=== PATIENT | male | born 1985 | race Caucasian/White ===

== ENCOUNTER 2016-09-14 17:59 | Emergency (ER) | payer SELFPAY ==
[2016-09-14] MEDS: IBUPROFEN 600 MG STARTER PACK 4 TAB BTL PO STA (18:24)
--- NOTE | 2016-09-14 18:55 | XR ---
EXAMINATION TYPE: XR chest 2V DATE OF EXAM: 09/14/2016 6:46 PM COMPARISON: July 05, 2011 HISTORY: Cough and congestion with pain TECHNIQUE: Frontal and lateral views of the chest are obtained. FINDINGS: There is no focal air space opacity, pleural effusion, or pneumothorax seen. The cardiac silhouette size is within normal limits. The osseous structures are intact. IMPRESSION: No acute cardiopulmonary process.
--- NOTE | 2016-09-14 19:14 | ED ---
URI HPI - General Chief Complaint: Upper Respiratory Infection Stated Complaint: congestion Time Seen by Provider: 09/14/16 18:08 Source: patient, RN notes reviewed Mode of arrival: ambulatory Limitations: no limitations - History of Present Illness Initial Comments: Patient is a 31 year old male with congestion, cough for 2 days. Patient also has had a high fever. No motrin or tylenol yet today. States that girlfriend is currently diagnosed with flu and thinks he has it. PAtient denies nausea, vomiting, chest pain, shortness of breath. He has no significant past medical history. - Related Data Previous Rx's Medication Instructions Recorded Benzonatate [Tessalon Perles] 100 mg PO TID PRN #20 capsule 09/14/16 Allergies Allergy/AdvReac Type Severity Reaction Status Date / Time No Known Allergies Allergy Verified 09/14/16 18:07 Review of Systems ROS Statement: Those systems with pertinent positive or pertinent negative responses have been documented in the HPI. ROS Other: All systems not noted in ROS Statement are negative. Past Medical History Past Medical History: No Reported History History of Any Multi-Drug Resistant Organisms: None Reported Additional Past Surgical History / Comment(s): ear tubes Past Psychological History: No Psychological Hx Reported Smoking Status: Current every day smoker Past Alcohol Use History: Occasional Past Drug Use History: None Reported General Exam Limitations: no limitations General appearance: alert, in no apparent distress Head exam: Present: atraumatic, normocephalic, normal inspection Eye exam: Present: normal appearance, PERRL, EOMI. Absent: scleral icterus, conjunctival injection, periorbital swelling ENT exam: Present: normal exam, mucous membranes moist Neck exam: Present: normal inspection. Absent: tenderness, meningismus, lymphadenopathy Respiratory exam: Present: normal lung sounds bilaterally. Absent: respiratory distress, wheezes, rales, rhonchi, stridor Cardiovascular Exam: Present: regular rate, normal rhythm, normal heart sounds. Absent: systolic murmur, diastolic murmur, rubs, gallop, clicks GI/Abdominal exam: Present: soft, normal bowel sounds. Absent: distended, tenderness, guarding, rebound, rigid Extremities exam: Present: normal inspection, full ROM, normal capillary refill. Absent: tenderness, pedal edema, joint swelling, calf tenderness Back exam: Present: normal inspection Neurological exam: Present: alert, oriented X3, CN II-XII intact Psychiatric exam: Present: normal affect, normal mood Skin exam: Present: warm, dry, intact, normal color. Absent: rash Course Vital Signs 09/14/16 09/14/16 18:07 19:38 Temperature 98.9 F 98.3 F Pulse Rate 89 77 Respiratory 18 16 Rate Blood Pressure 120/77 116/66 O2 Sat by Pulse 99 99 Oximetry Medical Decision Making - Medical Decision Making Patient is a 31 year old healthy male with congestion for 2 days and fever. Patient had recent dose of motrin. Patient and girlfriend test positive for infuenza B. Discussed resluts. Patient informed to alternate motrin and tylenol and OTC decongestatns patient understands treatmentplan and will comply. - Lab Data Lab Results 09/14/16 Range/Units 18:15 Influenza Type A RNA Not Detected (Not Detectd) Influenza Type B (PCR) Detected H (Not Detectd) Disposition Clinical Impression: Influenza B Disposition: HOME SELF-CARE Condition: Good Additional Instructions: Patient denies to continue dosing Motrin Tylenol every 3 hours as directed. Follow-up with primary care provider if symptoms continue persist. Return to emergency Department family signs or symptoms occur. Continue use over-the- counter decongestant such as mucinous. Prescriptions: Benzonatate [Tessalon Perles] 100 mg PO TID PRN #20 capsule PRN Reason: Cough Referrals: Micaela Charles MD [STAFF PHYSICIAN] - 1-2 days Time of Disposition: 19:13
[2016-09-14 19:39] VITALS: BP 116/66; PULSE 77; RESP 16; TEMP 98.3
== END 2016-09-14 19:39 | disposition home or self-care (01) ==
LOC: EC 17:59
DX: J10.1 Influenza due to other identified influenza virus with other respiratory manifestations (principal); F17.200 Nicotine dependence, unspecified, uncomplicated
CPT/HCPCS: 71020; 87502; 99283